=== PATIENT | female | born 1950 | race Caucasian/White ===

== ENCOUNTER 2016-06-01 08:01 | Day surgery (SDC) | payer MEDICARE, MEDICAID ==
[~2016-06-01 08:01] MED LIST: ASPIRIN CHILDRE81 M1 PO; ATORVASTATIN CA40 MG PO; CELEXA40 MG PO; CHILDREN'S CHEW1 CT1 PO; CIPRO 500MG TA500 MG PO; CLONAZEPAM 1MG T1 MG PO; CRESTOR10 MG PO; HYDROCODONE-APA1 TA1 PO; LISINOPRIL 5MG T5 MG PO; MEDROL 4MG. DOSE4 MG PO; MYRBETRIQ50 MG PO; NEXIUM40 MG PO; OMEPRAZOLE40 MG PO; OXYBUTYNIN CHLOR5 MG PO; PERCOCET 5/3251 EACH PO; PROVENTIL0.09 MG/A1 IH; TOPROL XL 25MG25 MG PO; ZITHROMAX Z PA250 MG PO
--- NOTE | 2016-06-01 09:06 | Operative Note ---
Endoscopy Report Date: 06/01/16 Preoperative diagnosis: Rectal bleeding, history of polyps Procedure Type of procedure: Total colonoscopy to terminal ileum with polypectomy and biopsies Indications: 66-year-old white female. She had an episode of painless rectal bleeding at which time she had had a lot of coughing. She has normal bowel movements. Apparently the patient has a previous history of possible ulcerative colitis she says she's been in remission. She has seen Dr. Vega in [place]. Her last colonoscopy was done by Dr. Ng in 2011. She had multiple tubular adenomas and diverticulosis. Random biopsies revealed no evidence of any colitis. Consent was obtained the patient was taken to same-day surgery endoscopy procedure room. She was positioned in a lateral decubitus position. Adequate intravenous sedation was achieved. Variable stiffness Olympus colonoscope was inserted via the anus. Patient had been given 7 mg Versed and 200 g fentanyl and was having some cramping. Anesthesia was contacted for additional sedation with propofol. Ultimately the colonoscope was able to be advanced to the cecum. The ileocecal valve and appendiceal orifice were clearly identified. Colonoscope was advanced into the terminal ileum which appeared grossly normal. Several biopsies were obtained within the terminal ileum. Within the cecum there were a couple of diminutive polyps removed with cold biopsy forceps. Obtained throughout as the colonoscope was withdrawn. An additional polyp was noted at the hepatic flexure and there was a somewhat hemorrhagic appearing rectal polyp. She had quite significant left-sided diverticulosis. None of this appeared be actively inflamed. She had some internal hemorrhoids noted upon retroflexion which appeared nonpathologic. Colonoscope was withdrawn. Findings 1. Polyp 2. Diverticulosis 3. Internal Hemorrhoids Follow-Up Follow-Up: Follow-up on histopathology. Likely plan for follow-up colonoscopy in 3-5 years pending the pathology. Her painless rectal bleeding may have been from internal hemorrhoids, less likely diverticulosis. at [id number]
[2016-06-01 13:35] VITALS: BP 151/72
== END 2016-06-01 10:10 | disposition home or self-care (01) ==
LOC: SDC 08:01
PROVIDERS: Surgery
PROC: 0DBP8ZX Excision of Rectum, Via Natural or Artificial Opening Endoscopic, Diagnostic (ICD-10-PCS; 2016-06-01)
PROC: 0DBH8ZX Excision of Cecum, Via Natural or Artificial Opening Endoscopic, Diagnostic (ICD-10-PCS; principal; 2016-06-01 08:30)
DX: K62.5 Hemorrhage of anus and rectum (principal); Z86.010 Personal history of colon polyps; D12.0 Benign neoplasm of cecum; K62.1 Rectal polyp; K57.90 Diverticulosis of intestine, part unspecified, without perforation or abscess without bleeding; K64.8 Other hemorrhoids

== ENCOUNTER → 2016-12-20 | Outpatient (CLI) | payer MEDICARE, MEDICAID ==
--- NOTE | 2016-12-20 17:08 | RADIOLOGY REPORT PS360 ---
CT CHEST W/WO CONTRAST HISTORY: NICOTINE DEPENDENCE,F/U ABNORMAL LLD,PNEUMONIA ORDERING PHYSICIAN: Edward Mcdonnell MD PATIENT AGE: 66 years TECHNIQUE: Axial images obtained without and with contrast.. Axial, sagittal, and coronal reformatted images are generated and reviewed. COMPARISON: 04/06/2016 FINDINGS: No mediastinal or hilar mass or adenopathy. Coronary artery calcifications are present. There are moderate to large sized hiatal hernia.. Centrilobular emphysematous changes are once again noted with hyperinflation and attenuation of the peripheral pulmonary vessels consistent with obstructive chronic bronchitis. Patchy groundglass density noted within the right upper lobe posteriorly not significant changed. Mild central bronchial thickening consistent with bronchitis. The opacification in the right lung base has improved. A 3 to 4 mm noncalcified nodule is present in the right lower lobe posterior laterally unchanged previously noted 4 mm nodule in the left lung base no longer apparent. 11 x 9 mm nodular opacity in the left lower lobe is no longer apparent and was likely inflammatory/infectious in nature. Patchy infiltrate in the left lung base has improved. No new nodules are evident. Upper abdominal images show a large hiatal hernia. There is diverticulosis of the splenic flexure. There are degenerative changes in the thoracic spine no evidence of aortic aneurysm or dissection. IMPRESSION: 1. There has been an overall improvement in the appearance of the chest. Previously described patchy areas of infiltrate in both lower lobes have improved. The left millimeters semisolid nodule in the left lower lobe has resolved. 2. No change 4 mm nodule right lower lobe. 3. Emphysema obstructive chronic bronchitis. Recommendations: Screening low-dose CT of the chest in one year
--- NOTE | 2016-12-23 00:16 | RADIOLOGY REPORT PS360 ---
DIG MAMM-SCREEN EDWARD W/CAD Patient Age: 66 years: Female Ordering Physician: Edward Mcdonnell MD HISTORY: SCREENING no hormones. No new complaints. Family history. Paternal aunt with breast cancer in her 40s TECHNIQUE: Standard CC and MLO images were obtained. R2 CAD reviewed. COMPARISON :September 2014, this November 2015, August 2013 digital mammograms . FINDINGS:... Minimal fibroglandular elements bilaterally. Fairly low-density breast fatty replacement bilaterally with no dominant mass nor suspicious calcifications. Scattered benign intramammary nodes at the deep right and left breast appear stable. There are again small vague areas subtle low-density nodularity bilaterally similar to previous studies. Stable and not of concern. Minor faint nodularity elsewhere for example deep right breast appears unchanged IMPRESSION: Stable bilateral mammogram. Subtle stable faint nodularity bilaterally. No new areas of concern BI-RADS CATEGORY: 2_Benign RECOMMENDED FOLLOWUP: (A letter has been sent to the patient regarding results of the study.)
== END ==
LOC: RAD 10:23
DX: Z12.31 Encounter for screening mammogram for malignant neoplasm of breast (principal); Z87.891 Personal history of nicotine dependence; Z12.2 Encounter for screening for malignant neoplasm of respiratory organs; R91.8 Other nonspecific abnormal finding of lung field
CPT/HCPCS: G0202; Q9967